=== PATIENT | female | born 1985 | race Hispanic/Latino ===

== ENCOUNTER 2023-10-24 13:16 | Outpatient (CLI) | payer BC | END 2023-10-24 13:17 | disposition home or self-care (01) | LOC: CSHMAMMO 13:16 | PROVIDERS: ATTEND Physician Assistant | DX: Z12.31 Encounter for screening mammogram for malignant neoplasm of breast (principal); Z80.3 Family history of malignant neoplasm of breast | CPT/HCPCS: 77063; 77067 ==

== ENCOUNTER 2024-06-19 09:05 | Outpatient (CLI) | payer BC | END 2024-06-19 09:06 | disposition home or self-care (01) | LOC: CSHCT 09:05 | PROVIDERS: ATTEND Physician Assistant | DX: R31.0 Gross hematuria (principal); K76.0 Fatty (change of) liver, not elsewhere classified; M43.06 Spondylolysis, lumbar region | CPT/HCPCS: 74176 ==

== ENCOUNTER 2025-06-09 09:11 | Outpatient (CLI) | payer BC | END 2025-06-09 09:12 | disposition home or self-care (01) | LOC: CSHMAMMO 09:11 | PROVIDERS: ATTEND Physician Assistant | DX: Z12.31 Encounter for screening mammogram for malignant neoplasm of breast (principal); Z80.3 Family history of malignant neoplasm of breast; N64.89 Other specified disorders of breast | CPT/HCPCS: 77063; 77067 ==

== ENCOUNTER 2025-06-16 09:15 | Outpatient (CLI) | payer BC | END 2025-06-16 09:16 | disposition home or self-care (01) | LOC: CSHMAMMO 09:15 | PROVIDERS: ATTEND Physician Assistant | DX: N64.89 Other specified disorders of breast (principal) | CPT/HCPCS: G0279 ==